=== PATIENT | female | born 1985 | race Caucasian/White ===

== ENCOUNTER 2018-02-12 18:11 | Emergency (ER) | payer MEDICAID ==
[2018-02-12 18:11] VITALS: BMI 43.5
[2018-02-12 18:35] VITALS: BP 106/72; PULSE 91; RESP 18; TEMP 99; O2SAT 99
--- NOTE | 2018-02-12 19:43 | C.PDOC ---
History Of Present Illness Patient complains of sore throat since yesterday and today felt chills and generalized body aches, thinks she had fever. She took Motrin for symptoms without relief. She reports pain with swallowing. Time Seen by Provider: 02/12/18 19:16 Chief Complaint (Nursing): ENT Problem History Per: Patient History/Exam Limitations: no limitations Onset/Duration Of Symptoms: Days Location Of Pain: Throat Past Medical History Reviewed: Historical Data, Nursing Documentation, Vital Signs Vital Signs: Last Vital Signs Temp 99.0 F 02/12/18 18:32 Pulse 91 H 02/12/18 18:32 Resp 18 02/12/18 18:32 BP 106/72 02/12/18 18:32 Pulse Ox 99 02/12/18 19:45 - Medical History PMH: Anxiety, Bronchitis (01/2014), Depression, Gastritis, Kidney Stones, Migraine (HAS SEVERE HEADACHES; MAY BE MIGRAINES), Chronic Kidney Disease Surgical History: Appendectomy, Cholecystectomy, Endoscopy, (x 2) - [facility] Procedures ESOPHAGOGASTRODUODENOSCOPY [EGD] W/CLOSED BIOPSY (02/05/14) HIGHLY SELECT VAGOTOMY (06/18/14) LAPAROSCOP LYSIS-PERITONEAL ADHES (06/18/14) LAPAROSCOPIC GASTROENTEROSTOMY (06/18/14) OTHER & OPEN REPAIR UMBILICAL HERNIA W GRAFT OR PROSTHESIS (06/24/14) TRANSABDOM ENDOSC OF [facility] (06/18/14) Family History: States: Unknown Family Hx - Social History Hx Tobacco Use: No Hx Alcohol Use: Yes Hx Substance Use: No - Immunization History Hx Tetanus Toxoid Vaccination: Yes Hx Influenza Vaccination: No Hx Pneumococcal Vaccination: No Review Of Systems Constitutional: Positive for: Chills, Malaise Eyes: Negative for: Vision Change, Redness ENT: Positive for: Throat Pain. Negative for: Ear Pain, Nose Congestion Cardiovascular: Negative for: Palpitations Respiratory: Negative for: Cough, Shortness of Breath, Sputum Gastrointestinal: Negative for: Nausea, Vomiting, Abdominal Pain, Diarrhea Genitourinary: Negative for: Dysuria Skin: Negative for: Rash Neurological: Negative for: Headache Physical Exam - Physical Exam Appears: Non-toxic, No Acute Distress Skin: Warm, Dry, No Rash Head: Atraumatic, Normacephalic Eye(s): bilateral: Normal Inspection, EOMI Ear(s): Bilateral: Normal (no erythema) Nose: Normal, No Flaring Oral Mucosa: Moist Tongue: Normal Appearing Lips: Normal Appearing Teeth: Normal Dentition Throat: Erythema (bright erythema to pharynx and tonsils enlarged, non-kissing and uvula midline), Exudate (bilateral tonsils), No Drooling, No Mass Neck: Normal ROM Lymphatic: Adenopathy (mild anterior left cervical LN) Chest: Symmetrical Cardiovascular: Rhythm Regular, No Murmur Respiratory: Normal Breath Sounds, No Rales, No Rhonchi, No Wheezing Extremity: Bilateral: Atraumatic, Normal Color And Temperature, Normal ROM Neurological/Psych: Oriented x3, Normal Speech ED Course And Treatment O2 Sat by Pulse Oximetry: 99 Medical Decision Making Medical Decision Making: Patient with acute throat pain and exam consistent with pharyngitis. Will treat with Amoxicillin. Rx given. Patient advised to follow up with PCP. Disposition Counseled Patient/Family Regarding: Diagnosis, Need For Followup, Rx Given - Disposition Referrals: Virginia Ragland MD [Medical Doctor] - Disposition: HOME/ ROUTINE Disposition Time: 19:50 Condition: GOOD Additional Instructions: Prescription [facility] to [facility] Take Amoxil twice daily for 10 days Tylenol or Motrin alternating every 4-6 hours for Fever 100.4F or higher. Rest and drink plenty of fluids to prevent dehydration. Try vanilla ice cream to improve eating/drinking, this is cold soothing and tastes good. May also try lozenges, or cepacol spray avilable over the counter. Prescriptions: Amoxicillin [Amoxil 500 mg Cap] 500 mg PO BID #20 cap Instructions: Strep Throat (DC) Forms: [employer] ([place]) - POA Present On Arrival: None - Clinical Impression Clinical Impression: Pharyngitis
== END 2018-02-12 19:54 | disposition home or self-care (01) ==
LOC: C.ER 18:11
DX: J02.9 Acute pharyngitis, unspecified (principal)